=== PATIENT | female | born 1945 | race Caucasian/White ===

== ENCOUNTER 2022-09-30 23:42 | Inpatient (IN) | payer MEDICARE, OTHER ==
[~2022-09-30] VITALS: Ht 190.5 cm; Wt 58.1 kg
[2022-10-01 01:33] LABS: BASOPHILS % (AUTO) 0.1 % (0.0-2.0); EOSINOPHILS # (AUTO) 0.1 K/uL (0.0-0.7); EOSINOPHILS % (AUTO) 0.4 % (0.0-6.0); HEMATOCRIT 23 % (33-45); HEMOGLOBIN 7.3 g/dL (11.5-14.8); LYMPHOCYTES # (AUTO) 1.2 K/uL (0.8-4.8); LYMPHOCYTES % (AUTO) 5.9 % (20.0-44.0); MEAN CORPUSCULAR HEMOGLOBIN 24 PG (26.0-33.0); MEAN CORPUSCULAR HGB CONC 32 g/dl (31.0-36.0); MEAN CORPUSCULAR VOLUME 75 fL (82-100); MONOCYTES # (AUTO) 1.6 K/uL (0.1-1.30); MONOCYTES % (AUTO) 7.8 % (2.0-12.0); NEUTROPHILS # (AUTO) 17.5 K/uL (1.8-8.9); NEUTROPHILS % (AUTO) 85.8 % (43.0-81.0); PLATELET COUNT (AUTO) 512 K/uL (150-450); RED BLOOD CELL COUNT(AUTO) 3.03 MIL/uL (4.0-5.2); RED CELL DISTRIBUTION WIDTH 16.2 % (11.5-15.0); WHITE BLOOD COUNT (AUTO) 20.4 K/uL (4.3-11.0)
[2022-10-01 01:43] LABS: CALCIUM, SERUM 8.4 mg/dL (8.5-10.1); CARBON DIOXIDE 28 mmol/L (21-32); CHLORIDE 102 mmol/L (98-107); CREATININE 0.6 mg/dL (0.6-1.3); GLUCOSE 110 mg/dL (74-106); POTASSIUM 3.4 mmol/L (3.5-5.1); SODIUM SERUM 138 mmol/L (136-145); UREA NITROGEN, BLOOD 29 mg/dL (7-18)
[2022-10-01 01:54] LABS: LACTIC ACID 0.7 mmol/L (0.4-2.0)
[2022-10-01 01:57] LABS: ALANINE AMINOTRANSFERASE 47 U/L (12-78); ALKALINE PHOSPHATASE 84 U/L (46-116); ASPARTATE AMINOTRANSFERASE 37 U/L (15-37); BILIRUBIN,DIRECT 0.2 mg/dL (0.0-0.2); BILIRUBIN,TOTAL 0.5 mg/dL (0.2-1.0); NT-PRO BNP 1259 pg/mL (0-125); TOTAL PROTEIN, SERUM 6.4 g/dL (6.4-8.2)
[2022-10-01 02:06] LABS: ALBUMIN 1.4 g/dL (3.4-5.0)
[2022-10-01 02:07] LABS: INR 1.38 (0.91-1.10); PARTIAL THROMBOPLASTIN TIME 30.1 SEC (24.3-34.3); PROTHROMBIN TIME 14.2 SECS (9.2-11.1)
[2022-10-01 02:19] LABS: LYMPHOCYTES % (MANUAL) 2 % (16-48); MONOCYTES % (MANUAL) 7 % (0-11.0); NEUTROPHILS % (MANUAL) 91 (42-76); PLATELET ESTIMATE INCREASED
[2022-10-01 02:20] LABS: ANISOCYTOSIS 1+
[2022-10-01 02:34] LABS: APPEARANCE,URINE CLEAR (CLEAR); BILIRUBIN,URINE NEGATIVE (NEGATIVE); BLOOD, URINE NEGATIVE Ery/uL (NEGATIVE); COLOR,URINE YELLOW (YELLOW); KETONES,URINE NEGATIVE (NEGATIVE); LEUKOCYTE ESTERASE ,URINE NEGATIVE (NEGATIVE); NITRITE, URINE NEGATIVE (NEGATIVE); PROTEIN,URINE TRACE mg/dl (NEGATIVE); UGLUCOSE NEGATIVE (NEGATIVE)
[2022-10-01 02:48] LABS: ADD URINE CULTURE NO; BACTERIA,URINE None seen /HPF (None Seen); MUCUS,URINE Few /LPF (None Seen); RBC,URINE NONE SEEN /HPF (0-2); WBC,URINE NONE SEEN /HPF (0-3)
[2022-10-01] MEDS ORDERED: CEFTRIAXONE 1GM BAG (ER ONLY) 1 GM/50 ML PIGGYBACK IV ONE (03:30)
[2022-10-01] MEDS ORDERED: AZITHROMYCIN 500 MG in IV D5W 250 ML IV ONE (03:30)
[2022-10-01] MEDS ORDERED: CEFTRIAXONE 1GM BAG (ER ONLY) 50 ML IV ONE (03:46)
[2022-10-01] MEDS ORDERED: AZITHROMYCIN 500 MG VIAL ONE (03:51)
[2022-10-01 05:58] VITALS: BP 96/47; TEMP 97.7; O2SAT 96
[2022-10-01] MEDS ORDERED: ACETAMINOPHEN 325 MG TABLET PO PRN (06:30)
[2022-10-01] MEDS ORDERED: ENOXAPARIN SODIUM 40 MG/0.4 ML DISP.SYRIN SQ SCH (06:30)
[2022-10-01] MEDS ORDERED: ONDANSETRON HCL/PF 4 MG/2 ML VIAL IVP PRN (06:30)
[2022-10-01 08:00] VITALS: BP 95/55; TEMP 97.7; O2SAT 96
[2022-10-01] MEDS ORDERED: SODI480S2 TP (08:51)
[2022-10-01] MEDS ORDERED: CHOL200059 GT (08:51)
[2022-10-01] MEDS ORDERED: ZINC220C6 GT (08:51)
[2022-10-01] MEDS ORDERED: COLL30OI TP (08:51)
[2022-10-01] MEDS ORDERED: HYDR28.32 TP (08:51)
[2022-10-01] MEDS ORDERED: ASCO-340 GT (08:51)
[2022-10-01] MEDS ORDERED: LEVO50TA8 GT (08:51)
[2022-10-01] MEDS ORDERED: NA P133E RC (08:51)
[2022-10-01] MEDS ORDERED: MULT-213 GT (08:51)
[2022-10-01] MEDS ORDERED: NORM210S TP (08:51)
[2022-10-01] MEDS ORDERED: AMIN887L7 GT (08:51)
[2022-10-01] MEDS ORDERED: HYDR-4303 GT (08:51)
[2022-10-01] MEDS ORDERED: LEVE100S GT (08:51)
[2022-10-01] MEDS ORDERED: MEMA1CAP3 GT (08:51)
[2022-10-01] MEDS ORDERED: [UNRECOGNIZED DRUG - OTHER] TP (08:51)
[2022-10-01] MEDS ORDERED: DOCU100T2 GT (08:51)
[2022-10-01] MEDS ORDERED: CRAN425C6 GT (08:51)
[2022-10-01] MEDS ORDERED: ACET-2605 GT (08:51)
[2022-10-01] MEDS ORDERED: MONT10TA22 GT (08:51)
[2022-10-01] MEDS ORDERED: CALCIUM ALGINATE TP (08:51)
[2022-10-01] MEDS ORDERED: AMLO5TAB4 GT (08:51)
[2022-10-01] MEDS ORDERED: NUTR150016 GT (08:51)
[2022-10-01] MEDS ORDERED: ACET-868 GT (08:51)
[2022-10-01] MEDS: ENOXAPARIN SODIUM 40 MG/0.4 ML DISP.SYRIN SQ SCH (09:27)
[2022-10-01] MEDS ORDERED: POTASSIUM CHLORIDE 20 MEQ POWDER PACKET PO ONE (10:00)
[2022-10-01] MEDS ORDERED: COLLAGENASE 30 GM TUBE TP SCH (10:00)
[2022-10-01] MEDS ORDERED: HYDROCODONE/APAP 5/325MG TABLET GT PRN (10:00)
[2022-10-01] MEDS ORDERED: NA PHOS,M-B/NA PHOS,DI-BA 1 EA ENEMA RC PRN (10:00)
[2022-10-01] MEDS: CEFEPIME 1 GM in IV D5W 50 ML IV SCH ×2 (10:43→22:49)
[2022-10-01] MEDS: IV NS 0.9% 1,000 ML IV PRN (10:50)
[2022-10-01] MEDS: DAKINS QUARTER STRENGTH (0.125%) 480 ML BOTTLE TOP SCH (11:00)
[2022-10-01] MEDS: JEVITY 1.2 CAL 1,000 ML BOTTLE GT PRN (12:48)
[2022-10-01] MEDS ORDERED: HYDROCORTISONE 1% CREAM 28.35 GM TUBE TP SCH (13:00)
[2022-10-01] MEDS: HYDROCORTISONE OINT 1% 28.35 GM TUBE TP SCH ×2 (13:56→21:24)
[2022-10-01] MEDS: LEVETIRACETAM SOL (5 ML) 100 MG/ML UDC GT SCH (17:06)
[2022-10-01 18:00] VITALS: BP 95/55; TEMP 98; O2SAT 96
[2022-10-01 20:00] VITALS: BP 110/69; TEMP 98.1; O2SAT 95
[2022-10-01] MEDS ORDERED: VANCOMYCIN 1.25 GM in IV D5W 250 ML IV ONE (20:30)
[2022-10-01] MEDS: THERAHONEY GEL 1.5 OZ TUBE TP SCH (21:24)
[2022-10-01] MEDS: MONTELUKAST SODIUM (10MG) 10 MG TABLET GT SCH (21:24)
[2022-10-02] VITALS: BP 118/73; TEMP 98.4; O2SAT 98
[2022-10-02] MEDS: IV NS 0.9% 1,000 ML IV PRN ×2 (00:33→11:50)
[2022-10-02] MEDS: AZITHROMYCIN 500 MG in IV D5W 250 ML IV SCH (03:00)
[2022-10-02] MEDS ORDERED: CEFTRIAXONE 1 G in IV D5W 50 ML IV SCH (03:00)
[2022-10-02 04:00] VITALS: BP 133/68; TEMP 98.3; O2SAT 95
[2022-10-02 06:10] LABS: BASOPHILS % (AUTO) 0.2 % (0.0-2.0); EOSINOPHILS # (AUTO) 0.3 K/uL (0.0-0.7); EOSINOPHILS % (AUTO) 1.9 % (0.0-6.0); HEMATOCRIT 25 % (33-45); HEMOGLOBIN 7.7 g/dL (11.5-14.8); LYMPHOCYTES # (AUTO) 0.9 K/uL (0.8-4.8); LYMPHOCYTES % (AUTO) 5.2 % (20.0-44.0); MEAN CORPUSCULAR HEMOGLOBIN 24 PG (26.0-33.0); MEAN CORPUSCULAR HGB CONC 32 g/dl (31.0-36.0); MEAN CORPUSCULAR VOLUME 76 fL (82-100); MONOCYTES # (AUTO) 0.9 K/uL (0.1-1.30); MONOCYTES % (AUTO) 5.5 % (2.0-12.0); NEUTROPHILS # (AUTO) 14.4 K/uL (1.8-8.9); NEUTROPHILS % (AUTO) 87.2 % (43.0-81.0); PLATELET COUNT (AUTO) 575 K/uL (150-450); RED BLOOD CELL COUNT(AUTO) 3.21 MIL/uL (4.0-5.2); RED CELL DISTRIBUTION WIDTH 15.7 % (11.5-15.0); WHITE BLOOD COUNT (AUTO) 16.5 K/uL (4.3-11.0)
[2022-10-02 06:37] LABS: CALCIUM, SERUM 8.6 mg/dL (8.5-10.1); CREATININE 0.6 mg/dL (0.6-1.3); MAGNESIUM 2.4 mg/dL (1.8-2.4); PHOSPHORUS 3.3 mg/dL (2.5-4.9); POTASSIUM 3.8 mmol/L (3.5-5.1)
[2022-10-02 08:00] VITALS: BP 115/64; TEMP 97.6; O2SAT 100
[2022-10-02] MEDS: LEVETIRACETAM SOL (5 ML) 100 MG/ML UDC GT SCH ×2 (08:20→17:10)
[2022-10-02] MEDS: VANCOMYCIN 1 GM in IV D5W 250ml IV SCH ×2 (08:20→22:04)
[2022-10-02] MEDS: LEVOTHYROXINE SODIUM 50 MCG TABLET GT SCH (08:20)
[2022-10-02] MEDS: AMLODIPINE BESYLATE 5 MG TABLET GT SCH (08:20)
[2022-10-02] MEDS: HYDROCORTISONE OINT 1% 28.35 GM TUBE TP SCH ×2 (08:21→21:28)
[2022-10-02] MEDS: THERAHONEY GEL 1.5 OZ TUBE TP SCH ×2 (08:21→21:29)
[2022-10-02] MEDS: ENOXAPARIN SODIUM 40 MG/0.4 ML DISP.SYRIN SQ SCH (08:27)
[2022-10-02] MEDS: DAKINS HALF STRENGTH (0.25%) 480 ML BOTTLE TOP SCH (09:00)
[2022-10-02] MEDS: DAKINS QUARTER STRENGTH (0.125%) 480 ML BOTTLE TOP SCH (11:50)
[2022-10-02] MEDS: CEFEPIME 1 GM in IV D5W 50 ML IV SCH ×2 (11:51→22:52)
[2022-10-02 12:00] VITALS: BP 111/60; TEMP 98; O2SAT 100
[2022-10-02 16:00] VITALS: BP 115/73; TEMP 97.1; O2SAT 100
[2022-10-02] MEDS: JEVITY 1.2 CAL 1,000 ML BOTTLE GT PRN (17:21)
[2022-10-02 20:00] VITALS: BP 132/80; TEMP 98.4; O2SAT 96
[2022-10-02] MEDS: MONTELUKAST SODIUM (10MG) 10 MG TABLET GT SCH (22:04)
[2022-10-03] VITALS: BP 126/71; TEMP 97.9; O2SAT 98
[2022-10-03] MEDS: AZITHROMYCIN 500 MG in IV D5W 250 ML IV SCH (03:27)
[2022-10-03] MEDS: IV NS 0.9% 1,000 ML IV PRN ×2 (03:44→18:10)
[2022-10-03 04:00] VITALS: BP 120/82; TEMP 98.8; O2SAT 97
[2022-10-03 06:36] LABS: CALCIUM, SERUM 8.5 mg/dL (8.5-10.1); CARBON DIOXIDE 27 mmol/L (21-32); CHLORIDE 102 mmol/L (98-107); CREATININE 0.4 mg/dL (0.6-1.3); GLUCOSE 133 mg/dL (74-106); POTASSIUM 3.6 mmol/L (3.5-5.1); SODIUM SERUM 136 mmol/L (136-145); UREA NITROGEN, BLOOD 16 mg/dL (7-18)
[2022-10-03 08:00] VITALS: BP 90/46; TEMP 98.2; O2SAT 94
[2022-10-03 08:04] LABS: BASOPHILS % (AUTO) 0.4 % (0.0-2.0); EOSINOPHILS # (AUTO) 0.4 K/uL (0.0-0.7); HEMATOCRIT 21 % (33-45); LYMPHOCYTES # (AUTO) 0.8 K/uL (0.8-4.8); LYMPHOCYTES % (AUTO) 5.9 % (20.0-44.0); MEAN CORPUSCULAR HEMOGLOBIN 24 PG (26.0-33.0); MEAN CORPUSCULAR HGB CONC 31 g/dl (31.0-36.0); MEAN CORPUSCULAR VOLUME 76 fL (82-100); MONOCYTES # (AUTO) 0.9 K/uL (0.1-1.30); MONOCYTES % (AUTO) 6.9 % (2.0-12.0); NEUTROPHILS # (AUTO) 11.4 K/uL (1.8-8.9); NEUTROPHILS % (AUTO) 83.8 % (43.0-81.0); PLATELET COUNT (AUTO) 589 K/uL (150-450); RED BLOOD CELL COUNT(AUTO) 2.78 MIL/uL (4.0-5.2); WHITE BLOOD COUNT (AUTO) 13.7 K/uL (4.3-11.0)
[2022-10-03 08:17] LABS: HEMOGLOBIN 6.6 g/dL (11.5-14.8)
[2022-10-03] MEDS: LEVOTHYROXINE SODIUM 50 MCG TABLET GT SCH (08:24)
[2022-10-03] MEDS: LEVETIRACETAM SOL (5 ML) 100 MG/ML UDC GT SCH ×2 (08:25→17:44)
[2022-10-03] MEDS: AMLODIPINE BESYLATE 5 MG TABLET GT SCH (08:37)
[2022-10-03] MEDS: DAKINS QUARTER STRENGTH (0.125%) 480 ML BOTTLE TOP SCH (08:47)
[2022-10-03] MEDS: DAKINS HALF STRENGTH (0.25%) 480 ML BOTTLE TOP SCH (08:47)
[2022-10-03] MEDS: HYDROCORTISONE OINT 1% 28.35 GM TUBE TP SCH ×2 (08:48→20:50)
[2022-10-03] MEDS: THERAHONEY GEL 1.5 OZ TUBE TP SCH ×2 (08:48→20:50)
[2022-10-03] MEDS: ENOXAPARIN SODIUM 40 MG/0.4 ML DISP.SYRIN SQ SCH (09:00)
[2022-10-03] MEDS: VANCOMYCIN 1 GM in IV D5W 250ml IV SCH ×2 (09:58→21:34)
[2022-10-03] MEDS: CEFEPIME 2 GM in IV D5W 100 ML IV SCH ×2 (11:38→20:49)
[2022-10-03 12:00] VITALS: BP 124/57; TEMP 98.6; O2SAT 96
[2022-10-03 12:50] LABS: ANISOCYTOSIS 1+; BASOPHILS % (MANUAL) 0 % (0.0-2.0); EOSINOPHILS % (MANUAL) 2 % (0-4); LYMPHOCYTES % (MANUAL) 8 % (16-48); METAMYELOCYTES % 0 % (0-0); MONOCYTES % (MANUAL) 9 % (0-11.0); NEUTROPHILS % (MANUAL) 81 (42-76); PLATELET ESTIMATE ADEQUATE
[2022-10-03] MEDS: JEVITY 1.2 CAL 1,000 ML BOTTLE GT PRN (15:30)
[2022-10-03] MEDS: ACETAMINOPHEN 650 MG/20.3 ML UDC PO PRN (15:55)
[2022-10-03 16:00] VITALS: BP 106/55; TEMP 98.2; O2SAT 100
[2022-10-03 20:00] VITALS: BP 115/54; TEMP 97.7; O2SAT 99
[2022-10-03] MEDS: MONTELUKAST SODIUM (10MG) 10 MG TABLET GT SCH (22:48)
[2022-10-04] VITALS (10 sets, daily range): BP systolic 114–130; BP diastolic 50–82; TEMP 97.5–99.4; O2SAT 95–99
[2022-10-04] MEDS: AZITHROMYCIN 500 MG in IV D5W 250 ML IV SCH (04:19)
[2022-10-04] MEDS: CEFEPIME 2 GM in IV D5W 100 ML IV SCH ×3 (05:05→20:03)
[2022-10-04 07:02] LABS: BASOPHILS # (AUTO) 0.1 K/uL (0.0-0.2); BASOPHILS % (AUTO) 0.3 % (0.0-2.0); EOSINOPHILS # (AUTO) 0.3 K/uL (0.0-0.7); EOSINOPHILS % (AUTO) 1.8 % (0.0-6.0); HEMATOCRIT 21 % (33-45); LYMPHOCYTES # (AUTO) 0.8 K/uL (0.8-4.8); LYMPHOCYTES % (AUTO) 4.2 % (20.0-44.0); MEAN CORPUSCULAR HEMOGLOBIN 24 PG (26.0-33.0); MEAN CORPUSCULAR HGB CONC 32 g/dl (31.0-36.0); MEAN CORPUSCULAR VOLUME 75 fL (82-100); MONOCYTES # (AUTO) 1.1 K/uL (0.1-1.30); MONOCYTES % (AUTO) 5.7 % (2.0-12.0); NEUTROPHILS # (AUTO) 16.5 K/uL (1.8-8.9); PLATELET COUNT (AUTO) 636 K/uL (150-450); RED BLOOD CELL COUNT(AUTO) 2.77 MIL/uL (4.0-5.2); WHITE BLOOD COUNT (AUTO) 18.8 K/uL (4.3-11.0)
[2022-10-04 07:06] LABS: HEMOGLOBIN 6.6 g/dL (11.5-14.8)
[2022-10-04 07:09] LABS: CALCIUM, SERUM 8.2 mg/dL (8.5-10.1); CARBON DIOXIDE 25 mmol/L (21-32); CHLORIDE 108 mmol/L (98-107); CREATININE 0.4 mg/dL (0.6-1.3); GLUCOSE 152 mg/dL (74-106); POTASSIUM 3.7 mmol/L (3.5-5.1); SODIUM SERUM 139 mmol/L (136-145); UREA NITROGEN, BLOOD 14 mg/dL (7-18)
[2022-10-04] MEDS: LEVETIRACETAM SOL (5 ML) 100 MG/ML UDC GT SCH ×2 (08:39→18:47)
[2022-10-04] MEDS: AMLODIPINE BESYLATE 5 MG TABLET GT SCH (08:41)
[2022-10-04] MEDS: LEVOTHYROXINE SODIUM 50 MCG TABLET GT SCH (08:41)
[2022-10-04] MEDS: HYDROCORTISONE OINT 1% 28.35 GM TUBE TP SCH ×2 (09:46→21:00)
[2022-10-04] MEDS: DAKINS HALF STRENGTH (0.25%) 480 ML BOTTLE TOP SCH (09:46)
[2022-10-04] MEDS: THERAHONEY GEL 1.5 OZ TUBE TP SCH ×2 (09:46→21:00)
[2022-10-04] MEDS: DAKINS QUARTER STRENGTH (0.125%) 480 ML BOTTLE TOP SCH ×2 (09:46→21:17)
[2022-10-04] MEDS: IV NS 0.9% 1,000 ML IV PRN (09:49)
[2022-10-04] MEDS: VANCOMYCIN 1 GM in IV D5W 250ml IV SCH ×2 (10:11→20:55)
[2022-10-04] MEDS: ARGININE/GLUTAMINE/CALCIUM BMB 1 EACH POWD.PACK GT SCH (18:47)
[2022-10-04] MEDS: PROSOURCE / PROSTAT (PYXIS) 30 ML UDC GT SCH (18:47)
[2022-10-04 21:16] LABS: ANISOCYTOSIS 1+; BAND % (MANUAL) 2 % (0.0-5.0); LYMPHOCYTES % (MANUAL) 6 % (16-48); MONOCYTES % (MANUAL) 1 % (0-11.0); NEUTROPHILS % (MANUAL) 91 (42-76); PLATELET ESTIMATE INCREASED; ROULEAUX 1+
[2022-10-04] MEDS: MONTELUKAST SODIUM (10MG) 10 MG TABLET GT SCH (21:16)
[2022-10-05] VITALS (8 sets, daily range): BP systolic 101–137; BP diastolic 60–75; TEMP 98–98.9; O2SAT 95–99
[2022-10-05] MEDS: AZITHROMYCIN 500 MG in IV D5W 250 ML IV SCH (03:32)
[2022-10-05] MEDS: IV NS 0.9% 1,000 ML IV PRN (05:20)
[2022-10-05] MEDS: CEFEPIME 2 GM in IV D5W 100 ML IV SCH ×3 (05:21→20:19)
[2022-10-05] MEDS: JEVITY 1.2 CAL 1,000 ML BOTTLE GT PRN (05:30)
[2022-10-05 07:17] LABS: CALCIUM, SERUM 8.4 mg/dL (8.5-10.1); CARBON DIOXIDE 25 mmol/L (21-32); CHLORIDE 107 mmol/L (98-107); CREATININE 0.4 mg/dL (0.6-1.3); GLUCOSE 132 mg/dL (74-106); POTASSIUM 3.9 mmol/L (3.5-5.1); SODIUM SERUM 138 mmol/L (136-145); UREA NITROGEN, BLOOD 20 mg/dL (7-18)
[2022-10-05] MEDS: AMLODIPINE BESYLATE 5 MG TABLET GT SCH (08:14)
[2022-10-05] MEDS: PROSOURCE / PROSTAT (PYXIS) 30 ML UDC GT SCH ×3 (08:14→16:11)
[2022-10-05] MEDS: LEVOTHYROXINE SODIUM 50 MCG TABLET GT SCH (08:14)
[2022-10-05] MEDS: LEVETIRACETAM SOL (5 ML) 100 MG/ML UDC GT SCH ×2 (08:14→16:11)
[2022-10-05] MEDS: ARGININE/GLUTAMINE/CALCIUM BMB 1 EACH POWD.PACK GT SCH ×2 (08:15→16:11)
[2022-10-05] MEDS: THERAHONEY GEL 1.5 OZ TUBE TP SCH ×2 (08:15→20:47)
[2022-10-05] MEDS: DAKINS QUARTER STRENGTH (0.125%) 480 ML BOTTLE TOP SCH ×2 (08:15)
[2022-10-05] MEDS: DAKINS HALF STRENGTH (0.25%) 480 ML BOTTLE TOP SCH (08:15)
[2022-10-05 18:11] LABS: BASOPHILS # (AUTO) 0.2 K/uL (0.0-0.2); BASOPHILS % (AUTO) 0.7 % (0.0-2.0); EOSINOPHILS # (AUTO) 0.4 K/uL (0.0-0.7); EOSINOPHILS % (AUTO) 1.5 % (0.0-6.0); HEMATOCRIT 28 % (33-45); HEMOGLOBIN 8.7 g/dL (11.5-14.8); LYMPHOCYTES # (AUTO) 1.1 K/uL (0.8-4.8); LYMPHOCYTES % (AUTO) 4.8 % (20.0-44.0); MEAN CORPUSCULAR HEMOGLOBIN 25 PG (26.0-33.0); MEAN CORPUSCULAR HGB CONC 32 g/dl (31.0-36.0); MEAN CORPUSCULAR VOLUME 79 fL (82-100); MONOCYTES # (AUTO) 1.3 K/uL (0.1-1.30); MONOCYTES % (AUTO) 5.4 % (2.0-12.0); NEUTROPHILS # (AUTO) 20.7 K/uL (1.8-8.9); NEUTROPHILS % (AUTO) 87.6 % (43.0-81.0); PLATELET COUNT (AUTO) 707 K/uL (150-450); RED BLOOD CELL COUNT(AUTO) 3.52 MIL/uL (4.0-5.2); RED CELL DISTRIBUTION WIDTH 17.8 % (11.5-15.0); WHITE BLOOD COUNT (AUTO) 23.6 K/uL (4.3-11.0)
[2022-10-05 20:18] LABS: EOSINOPHILS % (MANUAL) 1 % (0-4); LYMPHOCYTES % (MANUAL) 3 % (16-48); MONOCYTES % (MANUAL) 6 % (0-11.0); NEUTROPHILS % (MANUAL) 90 (42-76)
[2022-10-05 20:20] LABS: ANISOCYTOSIS 1+; PLATELET ESTIMATE INCREASED
[2022-10-05 20:21] LABS: HYPOCHROMASIA 1+
[2022-10-05] MEDS: VANCOMYCIN 1 GM in IV D5W 250ml IV SCH (21:44)
[2022-10-05] MEDS: MONTELUKAST SODIUM (10MG) 10 MG TABLET GT SCH (21:54)
[2022-10-06] VITALS (7 sets, daily range): BP systolic 110–150; BP diastolic 46–95; TEMP 97.3–98.5; O2SAT 98–100
[2022-10-06] MEDS: AZITHROMYCIN 500 MG in IV D5W 250 ML IV SCH (04:12)
[2022-10-06] MEDS: CEFEPIME 2 GM in IV D5W 100 ML IV SCH ×3 (05:26→22:09)
[2022-10-06] MEDS: JEVITY 1.2 CAL 1,000 ML BOTTLE GT PRN (05:31)
[2022-10-06] MEDS: IV NS 0.9% 1,000 ML IV PRN (05:38)
[2022-10-06 07:07] LABS: BASOPHILS # (AUTO) 0.1 K/uL (0.0-0.2); BASOPHILS % (AUTO) 0.5 % (0.0-2.0); EOSINOPHILS # (AUTO) 0.7 K/uL (0.0-0.7); EOSINOPHILS % (AUTO) 3.9 % (0.0-6.0); HEMATOCRIT 26 % (33-45); HEMOGLOBIN 8.1 g/dL (11.5-14.8); LYMPHOCYTES # (AUTO) 0.9 K/uL (0.8-4.8); LYMPHOCYTES % (AUTO) 5.1 % (20.0-44.0); MEAN CORPUSCULAR HEMOGLOBIN 25 PG (26.0-33.0); MEAN CORPUSCULAR HGB CONC 32 g/dl (31.0-36.0); MEAN CORPUSCULAR VOLUME 79 fL (82-100); MONOCYTES # (AUTO) 1.1 K/uL (0.1-1.30); MONOCYTES % (AUTO) 6.4 % (2.0-12.0); NEUTROPHILS # (AUTO) 14.5 K/uL (1.8-8.9); NEUTROPHILS % (AUTO) 84.1 % (43.0-81.0); PLATELET COUNT (AUTO) 638 K/uL (150-450); RED BLOOD CELL COUNT(AUTO) 3.25 MIL/uL (4.0-5.2); RED CELL DISTRIBUTION WIDTH 18.5 % (11.5-15.0); WHITE BLOOD COUNT (AUTO) 17.2 K/uL (4.3-11.0)
[2022-10-06 07:23] LABS: CALCIUM, SERUM 8.4 mg/dL (8.5-10.1); CARBON DIOXIDE 26 mmol/L (21-32); CHLORIDE 106 mmol/L (98-107); CREATININE 0.4 mg/dL (0.6-1.3); GLUCOSE 128 mg/dL (74-106); POTASSIUM 3.8 mmol/L (3.5-5.1); SODIUM SERUM 139 mmol/L (136-145); UREA NITROGEN, BLOOD 16 mg/dL (7-18)
[2022-10-06] MEDS: LEVOTHYROXINE SODIUM 50 MCG TABLET GT SCH (07:30)
[2022-10-06] MEDS: PROSOURCE / PROSTAT (PYXIS) 30 ML UDC GT SCH ×3 (08:42→16:11)
[2022-10-06] MEDS: LEVETIRACETAM SOL (5 ML) 100 MG/ML UDC GT SCH ×2 (09:36→16:11)
[2022-10-06] MEDS: AMLODIPINE BESYLATE 5 MG TABLET GT SCH (09:37)
[2022-10-06] MEDS: ARGININE/GLUTAMINE/CALCIUM BMB 1 EACH POWD.PACK GT SCH ×2 (09:37→16:11)
[2022-10-06] MEDS: DAKINS QUARTER STRENGTH (0.125%) 480 ML BOTTLE TOP SCH ×2 (09:37→09:38)
[2022-10-06] MEDS: DAKINS HALF STRENGTH (0.25%) 480 ML BOTTLE TOP SCH (09:39)
[2022-10-06] MEDS: THERAHONEY GEL 1.5 OZ TUBE TP SCH ×2 (09:41→22:30)
[2022-10-06] MEDS ORDERED: IOHEXOL-300 100 ML VIAL IV ONE (10:07)
[2022-10-06] MEDS ORDERED: IV NS 0.9% 250 ML IV ONE (10:08)
[2022-10-06] MEDS ORDERED: CT SWABBABLE VALVE TRANS SET 1 EA INFUS.SET MC ONE (10:08)
[2022-10-06] MEDS ORDERED: POLYETHYLENE GLYCOL 3350 17 GM POWD.PACK PO PRN (16:00)
[2022-10-06] MEDS: DOCUSATE SODIUM 100 MG CAPSULE PO SCH (16:11)
[2022-10-06] MEDS: MONTELUKAST SODIUM (10MG) 10 MG TABLET GT SCH (22:21)
[2022-10-06] MEDS: VANCOMYCIN 1 GM in IV D5W 250ml IV SCH (23:10)
[2022-10-07] VITALS: BP 120/65; TEMP 98.5; O2SAT 100
[2022-10-07 04:00] VITALS: BP 122/75; TEMP 98.5; O2SAT 100
[2022-10-07] MEDS: JEVITY 1.2 CAL 1,000 ML BOTTLE GT PRN (06:13)
[2022-10-07] MEDS: CEFEPIME 2 GM in IV D5W 100 ML IV SCH ×3 (06:42→21:42)
[2022-10-07] MEDS ORDERED: LIDOCAINE 1%-EPI 1:100,000 20 ML VIAL TP ONE (07:00)
[2022-10-07 07:29] LABS: BASOPHILS # (AUTO) 0.1 K/uL (0.0-0.2); BASOPHILS % (AUTO) 0.5 % (0.0-2.0); EOSINOPHILS # (AUTO) 0.5 K/uL (0.0-0.7); EOSINOPHILS % (AUTO) 3.2 % (0.0-6.0); HEMATOCRIT 25 % (33-45); HEMOGLOBIN 8.1 g/dL (11.5-14.8); LYMPHOCYTES # (AUTO) 0.9 K/uL (0.8-4.8); LYMPHOCYTES % (AUTO) 5.9 % (20.0-44.0); MEAN CORPUSCULAR HEMOGLOBIN 25 PG (26.0-33.0); MEAN CORPUSCULAR HGB CONC 32 g/dl (31.0-36.0); MEAN CORPUSCULAR VOLUME 79 fL (82-100); MONOCYTES # (AUTO) 1.1 K/uL (0.1-1.30); MONOCYTES % (AUTO) 7.2 % (2.0-12.0); NEUTROPHILS # (AUTO) 12.9 K/uL (1.8-8.9); NEUTROPHILS % (AUTO) 83.2 % (43.0-81.0); PLATELET COUNT (AUTO) 629 K/uL (150-450); RED BLOOD CELL COUNT(AUTO) 3.21 MIL/uL (4.0-5.2); RED CELL DISTRIBUTION WIDTH 18.7 % (11.5-15.0); WHITE BLOOD COUNT (AUTO) 15.5 K/uL (4.3-11.0)
[2022-10-07] MEDS ORDERED: SILVER NITRATE APPLICATOR 1 EA BOX TP SCH (07:30)
[2022-10-07 08:00] VITALS: BP 118/57; TEMP 97.9; O2SAT 98
[2022-10-07 08:01] LABS: CALCIUM, SERUM 8.4 mg/dL (8.5-10.1); CARBON DIOXIDE 27 mmol/L (21-32); CHLORIDE 107 mmol/L (98-107); CREATININE 0.4 mg/dL (0.6-1.3); GLUCOSE 118 mg/dL (74-106); POTASSIUM 3.9 mmol/L (3.5-5.1); SODIUM SERUM 139 mmol/L (136-145); UREA NITROGEN, BLOOD 30 mg/dL (7-18)
[2022-10-07] MEDS: DAKINS HALF STRENGTH (0.25%) 480 ML BOTTLE TOP SCH (08:13)
[2022-10-07] MEDS: ARGININE/GLUTAMINE/CALCIUM BMB 1 EACH POWD.PACK GT SCH ×2 (08:13→16:02)
[2022-10-07] MEDS: PROSOURCE / PROSTAT (PYXIS) 30 ML UDC GT SCH ×3 (08:13→16:01)
[2022-10-07] MEDS: DAKINS QUARTER STRENGTH (0.125%) 480 ML BOTTLE TOP SCH ×2 (08:14)
[2022-10-07] MEDS: THERAHONEY GEL 1.5 OZ TUBE TP SCH ×2 (08:14→21:42)
[2022-10-07] MEDS: DOCUSATE SODIUM 100 MG CAPSULE PO SCH ×2 (08:42→16:30)
[2022-10-07] MEDS: LEVETIRACETAM SOL (5 ML) 100 MG/ML UDC GT SCH ×2 (08:42→16:01)
[2022-10-07] MEDS: AMLODIPINE BESYLATE 5 MG TABLET GT SCH (08:42)
[2022-10-07] MEDS: LEVOTHYROXINE SODIUM 50 MCG TABLET GT SCH (08:44)
[2022-10-07 12:00] VITALS: BP 129/66; TEMP 98.2; O2SAT 97
[2022-10-07 16:00] VITALS: BP 128/65; TEMP 98.7; O2SAT 98
[2022-10-07] MEDS: IV NS 0.9% 1,000 ML IV PRN (16:05)
[2022-10-07 20:00] VITALS: BP 138/63; TEMP 99.8; O2SAT 94
[2022-10-07] MEDS: MONTELUKAST SODIUM (10MG) 10 MG TABLET GT SCH (22:49)
[2022-10-08] VITALS (14 sets, daily range): BP systolic 121–141; BP diastolic 51–84; TEMP 97.8–99.9; O2SAT 93–100
[2022-10-08] MEDS: IV NS 0.9% 1,000 ML IV PRN (05:18)
[2022-10-08] MEDS: CEFEPIME 2 GM in IV D5W 100 ML IV SCH ×3 (05:18→21:40)
[2022-10-08 06:31] LABS: ABG BASE EXCESS 2.8 mmol/L; ABG OXYGEN SATURATION 98.7 % (92.0-98.5); ABG PCO2 28.8 mmHg (35.0-45.0); ABG PH 7.554 (7.350-7.450); ABG PO2 147.5 mmHg (75.0-100.0); AaDO2 536.7 mmHg; COHb 0.3 % (0.5-1.5); MetHb 0.4 % (0.0-1.5); SITE, ABG Right Radial; VENT MODE, BG NRB
[2022-10-08 07:39] LABS: BASOPHILS % (AUTO) 0.1 % (0.0-2.0); EOSINOPHILS # (AUTO) 0.4 K/uL (0.0-0.7); EOSINOPHILS % (AUTO) 2.7 % (0.0-6.0); HEMATOCRIT 32 % (33-45); HEMOGLOBIN 9.9 g/dL (11.5-14.8); LYMPHOCYTES # (AUTO) 0.8 K/uL (0.8-4.8); LYMPHOCYTES % (AUTO) 5.8 % (20.0-44.0); MEAN CORPUSCULAR HEMOGLOBIN 25 PG (26.0-33.0); MEAN CORPUSCULAR HGB CONC 31 g/dl (31.0-36.0); MEAN CORPUSCULAR VOLUME 82 fL (82-100); MONOCYTES # (AUTO) 0.9 K/uL (0.1-1.30); MONOCYTES % (AUTO) 6.5 % (2.0-12.0); NEUTROPHILS # (AUTO) 11.3 K/uL (1.8-8.9); NEUTROPHILS % (AUTO) 84.9 % (43.0-81.0); PLATELET COUNT (AUTO) 563 K/uL (150-450); RED BLOOD CELL COUNT(AUTO) 3.91 MIL/uL (4.0-5.2); RED CELL DISTRIBUTION WIDTH 19.2 % (11.5-15.0); WHITE BLOOD COUNT (AUTO) 13.4 K/uL (4.3-11.0)
[2022-10-08 07:47] LABS: CALCIUM, SERUM 8.7 mg/dL (8.5-10.1); CARBON DIOXIDE 24 mmol/L (21-32); CHLORIDE 104 mmol/L (98-107); CREATININE 0.5 mg/dL (0.6-1.3); GLUCOSE 105 mg/dL (74-106); SODIUM SERUM 139 mmol/L (136-145); UREA NITROGEN, BLOOD 18 mg/dL (7-18)
[2022-10-08] MEDS: ALBUTEROL FS 2.5 MG/3 ML VIAL.NEB NEB SCH ×4 (07:59→20:04)
[2022-10-08] MEDS: IPRATROPIUM NEB FS 0.5 MG/2.5 ML AMPUL.NEB NEB SCH ×4 (07:59→20:04)
[2022-10-08] MEDS: LEVETIRACETAM SOL (5 ML) 100 MG/ML UDC GT SCH ×2 (08:05→16:27)
[2022-10-08] MEDS: DOCUSATE SODIUM 100 MG CAPSULE PO SCH ×2 (08:05→16:33)
[2022-10-08] MEDS: LEVOTHYROXINE SODIUM 50 MCG TABLET GT SCH (08:05)
[2022-10-08] MEDS: ARGININE/GLUTAMINE/CALCIUM BMB 1 EACH POWD.PACK GT SCH ×2 (08:17→16:32)
[2022-10-08] MEDS: PROSOURCE / PROSTAT (PYXIS) 30 ML UDC GT SCH ×3 (08:17→16:27)
[2022-10-08] MEDS: AMLODIPINE BESYLATE 5 MG TABLET GT SCH (08:24)
[2022-10-08] MEDS: DAKINS HALF STRENGTH (0.25%) 480 ML BOTTLE TOP SCH (09:07)
[2022-10-08] MEDS: DAKINS QUARTER STRENGTH (0.125%) 480 ML BOTTLE TOP SCH ×2 (09:08)
[2022-10-08] MEDS: THERAHONEY GEL 1.5 OZ TUBE TP SCH ×2 (09:08→21:44)
[2022-10-08] MEDS: JEVITY 1.2 CAL 1,000 ML BOTTLE GT PRN (13:45)
[2022-10-08] MEDS: ACETYLCYSTEINE 20% SOLN 800 MG/4 ML VIAL NEB SCH (16:00)
[2022-10-08] MEDS: ACETAMINOPHEN 650 MG/20.3 ML UDC PO PRN (16:27)
[2022-10-08] MEDS ORDERED: IV NS 0.9% 500 ML IV ONE (18:30)
[2022-10-08] MEDS: MONTELUKAST SODIUM (10MG) 10 MG TABLET GT SCH (21:40)
[2022-10-08] MEDS: MIRTAZAPINE 15 MG TABLET PO SCH (21:40)
[2022-10-09] VITALS (17 sets, daily range): BP systolic 104–125; BP diastolic 48–88; TEMP 97.8–99.1; O2SAT 95–100
[2022-10-09] MEDS: ACETYLCYSTEINE 20% SOLN 800 MG/4 ML VIAL NEB SCH ×3 (00:08→15:14)
[2022-10-09] MEDS: IPRATROPIUM NEB FS 0.5 MG/2.5 ML AMPUL.NEB NEB SCH ×6 (00:08→19:47)
[2022-10-09] MEDS: ALBUTEROL FS 2.5 MG/3 ML VIAL.NEB NEB SCH ×6 (00:08→19:47)
[2022-10-09] MEDS: IV NS 0.9% 1,000 ML IV PRN ×2 (00:41→11:42)
[2022-10-09] MEDS: CEFEPIME 2 GM in IV D5W 100 ML IV SCH ×3 (05:27→21:41)
[2022-10-09 06:33] LABS: BASOPHILS % (AUTO) 0.3 % (0.0-2.0); EOSINOPHILS # (AUTO) 0.6 K/uL (0.0-0.7); HEMATOCRIT 26 % (33-45); HEMOGLOBIN 8.1 g/dL (11.5-14.8); LYMPHOCYTES % (AUTO) 6.9 % (20.0-44.0); MEAN CORPUSCULAR HEMOGLOBIN 25 PG (26.0-33.0); MEAN CORPUSCULAR HGB CONC 31 g/dl (31.0-36.0); MEAN CORPUSCULAR VOLUME 81 fL (82-100); MONOCYTES # (AUTO) 0.8 K/uL (0.1-1.30); MONOCYTES % (AUTO) 5.9 % (2.0-12.0); NEUTROPHILS # (AUTO) 11.8 K/uL (1.8-8.9); NEUTROPHILS % (AUTO) 82.9 % (43.0-81.0); PLATELET COUNT (AUTO) 505 K/uL (150-450); RED CELL DISTRIBUTION WIDTH 19.4 % (11.5-15.0); WHITE BLOOD COUNT (AUTO) 14.2 K/uL (4.3-11.0)
[2022-10-09 06:53] LABS: CALCIUM, SERUM 8.6 mg/dL (8.5-10.1); CARBON DIOXIDE 26 mmol/L (21-32); CHLORIDE 108 mmol/L (98-107); CREATININE 0.5 mg/dL (0.6-1.3); GLUCOSE 156 mg/dL (74-106); POTASSIUM 4.1 mmol/L (3.5-5.1); SODIUM SERUM 142 mmol/L (136-145); UREA NITROGEN, BLOOD 34 mg/dL (7-18)
[2022-10-09] MEDS: LEVOTHYROXINE SODIUM 50 MCG TABLET GT SCH (08:47)
[2022-10-09] MEDS: DAKINS HALF STRENGTH (0.25%) 480 ML BOTTLE TOP SCH (09:00)
[2022-10-09] MEDS: ARGININE/GLUTAMINE/CALCIUM BMB 1 EACH POWD.PACK GT SCH ×2 (09:59→17:57)
[2022-10-09] MEDS: PROSOURCE / PROSTAT (PYXIS) 30 ML UDC GT SCH ×3 (09:59→17:57)
[2022-10-09] MEDS: DOCUSATE SODIUM 100 MG CAPSULE PO SCH ×2 (10:00→17:55)
[2022-10-09] MEDS: LEVETIRACETAM SOL (5 ML) 100 MG/ML UDC GT SCH ×2 (10:00→17:55)
[2022-10-09] MEDS: AMLODIPINE BESYLATE 5 MG TABLET GT SCH (10:00)
[2022-10-09] MEDS: ACETAMINOPHEN 650 MG/20.3 ML UDC PO PRN ×2 (10:15→17:55)
[2022-10-09] MEDS: JEVITY 1.2 CAL 1,000 ML BOTTLE GT PRN (11:34)
[2022-10-09] MEDS: DAKINS QUARTER STRENGTH (0.125%) 480 ML BOTTLE TOP SCH ×2 (18:59→19:02)
[2022-10-09] MEDS: THERAHONEY GEL 1.5 OZ TUBE TP SCH ×2 (19:03→21:42)
[2022-10-09] MEDS: MONTELUKAST SODIUM (10MG) 10 MG TABLET GT SCH (21:41)
[2022-10-09] MEDS: MIRTAZAPINE 15 MG TABLET PO SCH (21:41)
[2022-10-10] VITALS (16 sets, daily range): BP systolic 97–147; BP diastolic 63–82; TEMP 97.6–98.8; O2SAT 97–100
[2022-10-10] MEDS: ALBUTEROL FS 2.5 MG/3 ML VIAL.NEB NEB SCH ×7 (00:16→23:00)
[2022-10-10] MEDS: IPRATROPIUM NEB FS 0.5 MG/2.5 ML AMPUL.NEB NEB SCH ×7 (00:16→23:00)
[2022-10-10] MEDS: ACETYLCYSTEINE 20% SOLN 800 MG/4 ML VIAL NEB SCH ×4 (00:16→23:00)
[2022-10-10] MEDS: CEFEPIME 2 GM in IV D5W 100 ML IV SCH ×3 (05:38→21:36)
[2022-10-10] MEDS: JEVITY 1.2 CAL 1,000 ML BOTTLE GT PRN (06:33)
[2022-10-10] MEDS: IV NS 0.9% 1,000 ML IV PRN (06:34)
[2022-10-10 07:14] LABS: BASOPHILS # (AUTO) 0.1 K/uL (0.0-0.2); BASOPHILS % (AUTO) 0.7 % (0.0-2.0); EOSINOPHILS # (AUTO) 0.8 K/uL (0.0-0.7); EOSINOPHILS % (AUTO) 6.4 % (0.0-6.0); HEMATOCRIT 23 % (33-45); HEMOGLOBIN 7.1 g/dL (11.5-14.8); LYMPHOCYTES % (AUTO) 7.9 % (20.0-44.0); MEAN CORPUSCULAR HEMOGLOBIN 25 PG (26.0-33.0); MEAN CORPUSCULAR HGB CONC 31 g/dl (31.0-36.0); MEAN CORPUSCULAR VOLUME 80 fL (82-100); MONOCYTES % (AUTO) 7.8 % (2.0-12.0); NEUTROPHILS # (AUTO) 9.8 K/uL (1.8-8.9); NEUTROPHILS % (AUTO) 77.2 % (43.0-81.0); PLATELET COUNT (AUTO) 465 K/uL (150-450); RED BLOOD CELL COUNT(AUTO) 2.84 MIL/uL (4.0-5.2); RED CELL DISTRIBUTION WIDTH 19.7 % (11.5-15.0); WHITE BLOOD COUNT (AUTO) 12.7 K/uL (4.3-11.0)
[2022-10-10 07:24] LABS: CALCIUM, SERUM 8.4 mg/dL (8.5-10.1); CARBON DIOXIDE 26 mmol/L (21-32); CHLORIDE 108 mmol/L (98-107); CREATININE 0.4 mg/dL (0.6-1.3); GLUCOSE 108 mg/dL (74-106); POTASSIUM 3.9 mmol/L (3.5-5.1); SODIUM SERUM 141 mmol/L (136-145); UREA NITROGEN, BLOOD 39 mg/dL (7-18)
[2022-10-10] MEDS: LEVOTHYROXINE SODIUM 50 MCG TABLET GT SCH (07:39)
[2022-10-10] MEDS: PROSOURCE / PROSTAT (PYXIS) 30 ML UDC GT SCH ×3 (07:41→16:12)
[2022-10-10] MEDS: ARGININE/GLUTAMINE/CALCIUM BMB 1 EACH POWD.PACK GT SCH ×2 (07:42→16:12)
[2022-10-10] MEDS: LEVETIRACETAM SOL (5 ML) 100 MG/ML UDC GT SCH ×2 (08:09→16:12)
[2022-10-10] MEDS: AMLODIPINE BESYLATE 5 MG TABLET GT SCH (08:09)
[2022-10-10] MEDS ORDERED: MIRTAZAPINE 15 MG TABLET GT SCH (08:10)
[2022-10-10] MEDS ORDERED: POLYETHYLENE GLYCOL 3350 17 GM POWD.PACK GT PRN (08:11)
[2022-10-10] MEDS: DOCUSATE SODIUM LIQ 100 MG/10 ML UDC PO SCH ×2 (08:12→16:12)
[2022-10-10] MEDS: THERAHONEY GEL 1.5 OZ TUBE TP SCH ×2 (08:13→22:18)
[2022-10-10] MEDS: DAKINS QUARTER STRENGTH (0.125%) 480 ML BOTTLE TOP SCH ×2 (08:13→08:14)
[2022-10-10] MEDS: DAKINS HALF STRENGTH (0.25%) 480 ML BOTTLE TOP SCH (08:15)
[2022-10-10] MEDS ORDERED: ACETAMINOPHEN 650 MG/20.3 ML UDC GT PRN (08:30)
[2022-10-10 12:45] LABS: HEMOGLOBIN 7.7 g/dL (11.5-14.8)
[2022-10-10] MEDS: MONTELUKAST SODIUM (10MG) 10 MG TABLET GT SCH (22:19)
[2022-10-11] VITALS (9 sets, daily range): BP systolic 116–156; BP diastolic 50–91; TEMP 97.8–98.9; O2SAT 90–100
[2022-10-11] MEDS: ALBUTEROL FS 2.5 MG/3 ML VIAL.NEB NEB SCH ×4 (03:40→15:31)
[2022-10-11] MEDS: IPRATROPIUM NEB FS 0.5 MG/2.5 ML AMPUL.NEB NEB SCH ×4 (03:40→15:31)
[2022-10-11] MEDS: CEFEPIME 2 GM in IV D5W 100 ML IV SCH ×2 (04:03→12:06)
[2022-10-11 06:20] LABS: BASOPHILS % (AUTO) 0.3 % (0.0-2.0); EOSINOPHILS # (AUTO) 0.7 K/uL (0.0-0.7); HEMATOCRIT 24 % (33-45); HEMOGLOBIN 7.8 g/dL (11.5-14.8); LYMPHOCYTES # (AUTO) 0.9 K/uL (0.8-4.8); LYMPHOCYTES % (AUTO) 6.4 % (20.0-44.0); MEAN CORPUSCULAR HEMOGLOBIN 26 PG (26.0-33.0); MEAN CORPUSCULAR HGB CONC 32 g/dl (31.0-36.0); MEAN CORPUSCULAR VOLUME 80 fL (82-100); MONOCYTES # (AUTO) 0.9 K/uL (0.1-1.30); MONOCYTES % (AUTO) 6.8 % (2.0-12.0); NEUTROPHILS # (AUTO) 11.1 K/uL (1.8-8.9); NEUTROPHILS % (AUTO) 81.5 % (43.0-81.0); PLATELET COUNT (AUTO) 446 K/uL (150-450); RED BLOOD CELL COUNT(AUTO) 3.05 MIL/uL (4.0-5.2); RED CELL DISTRIBUTION WIDTH 20.1 % (11.5-15.0); WHITE BLOOD COUNT (AUTO) 13.7 K/uL (4.3-11.0)
[2022-10-11 06:38] LABS: CALCIUM, SERUM 8.3 mg/dL (8.5-10.1); CARBON DIOXIDE 27 mmol/L (21-32); CHLORIDE 106 mmol/L (98-107); CREATININE 0.5 mg/dL (0.6-1.3); GLUCOSE 150 mg/dL (74-106); POTASSIUM 3.8 mmol/L (3.5-5.1); SODIUM SERUM 141 mmol/L (136-145); UREA NITROGEN, BLOOD 23 mg/dL (7-18)
[2022-10-11 07:48] LABS: EOSINOPHILS % (MANUAL) 4 % (0-4); LYMPHOCYTES % (MANUAL) 9 % (16-48); MONOCYTES % (MANUAL) 2 % (0-11.0); NEUTROPHILS % (MANUAL) 85 (42-76)
[2022-10-11 07:49] LABS: ANISOCYTOSIS 1+; PLATELET ESTIMATE ADEQU
[2022-10-11] MEDS: ACETYLCYSTEINE 20% SOLN 800 MG/4 ML VIAL NEB SCH (08:21)
[2022-10-11] MEDS: ARGININE/GLUTAMINE/CALCIUM BMB 1 EACH POWD.PACK GT SCH (08:55)
[2022-10-11] MEDS: DOCUSATE SODIUM LIQ 100 MG/10 ML UDC PO SCH (08:55)
[2022-10-11] MEDS: LEVETIRACETAM SOL (5 ML) 100 MG/ML UDC GT SCH (08:55)
[2022-10-11] MEDS: PROSOURCE / PROSTAT (PYXIS) 30 ML UDC GT SCH ×2 (08:55→12:06)
[2022-10-11] MEDS: LEVOTHYROXINE SODIUM 50 MCG TABLET GT SCH (08:55)
[2022-10-11] MEDS: DAKINS QUARTER STRENGTH (0.125%) 480 ML BOTTLE TOP SCH ×2 (08:56→08:57)
[2022-10-11] MEDS: AMLODIPINE BESYLATE 5 MG TABLET GT SCH (08:56)
[2022-10-11] MEDS: DAKINS HALF STRENGTH (0.25%) 480 ML BOTTLE TOP SCH (08:56)
[2022-10-11] MEDS: THERAHONEY GEL 1.5 OZ TUBE TP SCH (10:13)
[2022-10-11] MEDS ORDERED: MIRT-121 GT (12:27)
[2022-10-11] MEDS ORDERED: IPRA0.2S9 NEB (12:27)
[2022-10-11] MEDS ORDERED: Prosource GT (12:27)
[2022-10-11] MEDS ORDERED: ALBUT2 NEB (12:27)
[2022-10-11] MEDS ORDERED: DOCU50LI PO (12:27)
[2022-10-11] MEDS ORDERED: CEFE2FRO IV (12:27)
[2022-10-11] MEDS ORDERED: LACT-209 GT (12:27)
[2022-10-11] MEDS ORDERED: COLL30OI TP (12:27)
[2022-10-11] MEDS ORDERED: SODI473S8 TOP (12:27)
[2022-10-11] MEDS ORDERED: NUTR1PAC14 GT (12:27)
[2022-10-11] MEDS ORDERED: SILV100S2 TP (12:27)
[2022-10-11] MEDS ORDERED: ACET200V4 NEB (12:27)
== END 2022-10-11 16:15 | DRG 853 ==
LOC: ER 23:44 → TELE1 10-01 03:47 → TELE 10-10 23:07 → MED 10-11 14:39
PROVIDERS: ADMIT Internal Medicine; ATTEND Nurse Practitioner Acute Care
PROC: 05H533Z Insertion of Infusion Device into Right Subclavian Vein, Percutaneous Approach (ICD-10-PCS; 2022-10-03)
PROC: B546ZZA Ultrasonography of Right Subclavian Vein, Guidance (ICD-10-PCS; 2022-10-03)
PROC: 0QBP0ZZ Excision of Left Metatarsal, Open Approach (ICD-10-PCS; principal; 2022-10-04)
PROC: 0QBN0ZZ Excision of Right Metatarsal, Open Approach (ICD-10-PCS; 2022-10-04)
PROC: 30233N1 Transfusion of Nonautologous Red Blood Cells into Peripheral Vein, Percutaneous Approach (ICD-10-PCS; 2022-10-04)
PROC: 0KB50ZZ Excision of Right Shoulder Muscle, Open Approach (ICD-10-PCS; 2022-10-07)
PROC: 0QB20ZZ Excision of Right Pelvic Bone, Open Approach (ICD-10-PCS; 2022-10-07)
PROC: 0QB10ZZ Excision of Sacrum, Open Approach (ICD-10-PCS; 2022-10-07)
PROC: 05H633Z Insertion of Infusion Device into Left Subclavian Vein, Percutaneous Approach (ICD-10-PCS; 2022-10-08)
PROC: B547ZZA Ultrasonography of Left Subclavian Vein, Guidance (ICD-10-PCS; 2022-10-08)
DX: A41.9 Sepsis, unspecified organism (principal); E43 Unspecified severe protein-calorie malnutrition; L89.214 Pressure ulcer of right hip, stage 4; L89.314 Pressure ulcer of right buttock, stage 4; L89.154 Pressure ulcer of sacral region, stage 4; L89.114 Pressure ulcer of right upper back, stage 4; L89.894 Pressure ulcer of other site, stage 4; J15.6 Pneumonia due to other Gram-negative bacteria; J69.0 Pneumonitis due to inhalation of food and vomit; J96.20 Acute and chronic respiratory failure, unspecified whether with hypoxia or hypercapnia; G93.41 Metabolic encephalopathy; R53.2 Functional quadriplegia; D68.69 Other thrombophilia; J90 Pleural effusion, not elsewhere classified; R64 Cachexia; Z68.1 Body mass index [BMI] 19.9 or less, adult; M86.8X8 Other osteomyelitis, other site; I11.0 Hypertensive heart disease with heart failure; I50.9 Heart failure, unspecified; F02.80 Dementia in other diseases classified elsewhere, unspecified severity, without behavioral disturbance, psychotic disturbance, mood disturbance, and anxiety; G30.9 Alzheimer's disease, unspecified; Z20.822 Contact with and (suspected) exposure to COVID-19; E88.09 Other disorders of plasma-protein metabolism, not elsewhere classified; E03.9 Hypothyroidism, unspecified; D63.8 Anemia in other chronic diseases classified elsewhere; J45.909 Unspecified asthma, uncomplicated; M24.561 Contracture, right knee; M24.562 Contracture, left knee; R62.7 Adult failure to thrive; Z74.01 Bed confinement status; Z93.1 Gastrostomy status; R13.10 Dysphagia, unspecified; Z74.09 Other reduced mobility; L89.896 Pressure-induced deep tissue damage of other site; M24.522 Contracture, left elbow; M24.521 Contracture, right elbow; K59.00 Constipation, unspecified; T17.990A Other foreign object in respiratory tract, part unspecified in causing asphyxiation, initial encounter
CPT/HCPCS: 31720; 36410; 36415; 36600; 71045-TC; 73701-TC; 76604-TC; 80048-TC; 80076-TC; 80202-TC; 81001; 82803-TC; 82962-TC; 83605-TC; 83735-TC; 83880; 84100-TC; 84484-TC; 85025-TC; 85027-TC; 85730-TC; 86850-TC; 87040-TC; 87081-TC; 87086-TC; 93307-TC; 94799-TC; 99082-TC; A4223; A6253; A6403; C9803; G0378; J0456; J0692; J0696; J1650; J1953; J3370; J3490; J7030; J7040; J7050; J7060; P9016; Q9967